=== PATIENT | male | born 1960 | race Caucasian/White ===

== ENCOUNTER 2018-03-21 01:25 | Emergency (ER) | payer OTHER ==
[~2018-03-21] VITALS: Ht 180.3 cm; Wt 97.5 kg
--- NOTE | ~2018-03-21 | EKG ---
[address] [place] [address] [place] [address] ELECTROCARDIOGRAM REPORT Name: PAULO GARCIA Room #: [facility] ANG Thompson#: [id number] Admission: 03/21/18 Attend Phys: Discharge: 03/21/18 Date of : 62 Report #: [id number] THIS REPORT FOR: //name// [facility] ED Test Date: 2018-03-21 Test Time: 01:57:32 Pat Name: PAULO RADHA Department: Room: Gender: Registry Rn: eric : 1960 Requested By: Paulo Landis Order Number: [id number] MD: Philip Humphrey Measurements Intervals [place] Rate: 85 P: 46 PA: 162 QRS: 75 QRSD: 106 T: 25 QT: 376 QTc: 447 Interpretive Statements Sinus rhythm No significant abnormality No previous ECG available for comparison Electronically Signed On 03-22-2018 10:07:39 CDT by Philip Humphrey [email or web address] <ELECTRONICALLY SIGNED> By: Philip Humphrey MD, [facility] 03/22/18 [id number] Philip Humphrey MD, FACC /EPI
[2018-03-21 02:01] LABS: BASOPHILS 0.4 % (0.0-2.0); HEMATOCRIT 38.6 % (42.0-52.0); HEMOGLOBIN 13.6 gm/dL (14.0-18.0); LYMPHOCYTES 5.1 % (24.0-44.0); MCH 28.3 pg (26.0-34.0); MCHC 35.1 g/dL (28.0-37.0); MCV 80.5 fL (80.0-100.0); MONOCYTES 2.3 % (1.0-8.0); PLATELET COUNT 259 thou/uL (150-400); POLYS 92.2 % (36.0-66.0); RDW 15.6 % (10.5-14.5)
[2018-03-21 02:10] LABS: ANION GAP 11 mmol/L (7-16); BUN 25 mg/dL (7-18); CALCIUM 11.1 mg/dL (8.5-10.1); CHLORIDE 97 mmol/L (98-107); CO2 28 mmol/L (21-32); CREATININE 1.4 mg/dL (0.7-1.3); GLUCOSE 198 mg/dL (74-106); POTASSIUM 3.7 mmol/L (3.5-5.1); SODIUM 136 mmol/L (136-145)
[2018-03-21 02:19] LABS: ALBUMIN 4.6 g/dL (3.4-5.0); LIPASE 123 U/L (73-393); SGOT 22 U/L (15-37); SGPT 27 U/L (30-65); TOTAL BILIRUBIN 0.6 mg/dL (<0.1-1.0); TOTAL PROTEIN 8.6 g/dL (6.4-8.2); TROPONIN-I < 0.04 ng/mL (<0.06)
[2018-03-21] MEDS ORDERED: ZOFRAN ODT8 MG PO (02:32)
[2018-03-21 03:58] VITALS: BP 174/99
== END 2018-03-21 03:58 | disposition home or self-care (01) ==
LOC: ER 01:25
PROVIDERS: Emergency Medicine
DX: R19.7 Diarrhea, unspecified (principal); R11.2 Nausea with vomiting, unspecified; I10 Essential (primary) hypertension; G89.4 Chronic pain syndrome; R10.10 Upper abdominal pain, unspecified; R10.84 Generalized abdominal pain

== ENCOUNTER 2018-05-22 09:47 | Emergency (ER) | payer OTHER ==
[~2018-05-22] VITALS: Ht 180.3 cm; Wt 90.7 kg
[~2018-05-22 09:47] MED LIST: ZOFRAN ODT8 MG PO
[2018-05-22] MEDS ORDERED: OXYCODONE HCL 55 MG PO (09:56)
[2018-05-22] MEDS ORDERED: FENOFIBRATE160 MG PO (10:11)
[2018-05-22] MEDS ORDERED: LISINOPRIL20 MG PO (10:11)
[2018-05-22 10:13] LABS: ABSOLUTE NEUTROPHILS 10.5 thou/uL (1.4-8.2); BASOPHILS 0.5 % (0.0-2.0); EOSINOPHILS 0.1 % (0.0-3.0); HEMATOCRIT 33.6 % (42.0-52.0); HEMOGLOBIN 11.9 gm/dL (14.0-18.0); LYMPHOCYTES 5.6 % (24.0-44.0); MCH 28.5 pg (26.0-34.0); MCHC 35.3 g/dL (28.0-37.0); MCV 80.6 fL (80.0-100.0); PLATELET COUNT 257 thou/uL (150-400); POLYS 90.8 % (36.0-66.0); RBC 4.16 mil/uL (4.50-6.00); RDW 15.1 % (10.5-14.5); WBC 11.5 thou/uL (4.0-11.0)
[2018-05-22 10:25] LABS: CALCIUM 9.7 mg/dL (8.5-10.1); CREATININE 1.2 mg/dL (0.7-1.3); POTASSIUM 3.9 mmol/L (3.5-5.1)
[2018-05-22 10:30] LABS: TOTAL BILIRUBIN 0.4 mg/dL (<0.1-1.0); TOTAL PROTEIN 7.9 g/dL (6.4-8.2)
[2018-05-22] MEDS ORDERED: PEPCID20 MG PO (11:50)
[2018-05-22] MEDS ORDERED: ONDANSETRON HCL4 M2 PO (11:51)
[2018-05-22 18:45] VITALS: BP 166/105
== END 2018-05-22 13:30 | disposition home or self-care (01) ==
LOC: ER 09:47
PROVIDERS: Emergency Medicine
DX: R10.13 Epigastric pain (principal); R11.2 Nausea with vomiting, unspecified; R50.9 Fever, unspecified